=== PATIENT | female | born 2000 | race Caucasian/White ===

== ENCOUNTER 2022-07-05 18:40 | Emergency (ER) | payer BC ==
[~2022-07-05] VITALS: Ht 167.6 cm; Wt 77.1 kg
[2022-07-05] MEDS ORDERED: PROG200C15 PO (19:11)
--- NOTE | 2022-07-05 19:12 | NUR ---
After being triaged, patient was placed back in the waiting room due to no beds available in the ER at this time.
--- NOTE | 2022-07-05 20:55 | NUR ---
Placed patient in room 5a at this time
--- NOTE | 2022-07-05 21:15 | NUR ---
Dr. Carpio at bedside. MSE in progress.
[2022-07-05] MEDS ORDERED: KETOROLAC TROMETHAMINE 60 MG INJ IM ONE ×2 (21:30→22:13)
[2022-07-05 21:52] LABS: *URINE HCG, QUAL NEGATIVE (NEGATIVE)
--- NOTE | 2022-07-05 22:16 | NUR ---
PT refused toradol 60 mg order at this time until test serum quant results come back. Urine test is negative.
[2022-07-06] MEDS ORDERED: CYCLOBENZAPRINE HCL 10 MG TABLET PO ONE
[2022-07-06] MEDS ORDERED: CYCLOBENZAPRINE HCL 10 MG TABLET ONE (00:02)
[2022-07-06] MEDS ORDERED: CYCL10TA9 PO (00:29)
[2022-07-06] MEDS ORDERED: NAPR-1164 PO (00:29)
--- NOTE | 2022-07-06 01:24 | NUR ---
Patient discharged to home in stable condition with boyfriend. A/O x 4. NAD noted. Ambulatory with a steady gait. All belongings with patient. Written and verbal after care instructions given. Patient verbalizes understanding of instructions. Stressed follow up or return to ER for worsening s/s.
[2022-07-06 02:02] VITALS: BP 131/68
== END 2022-07-06 01:24 | disposition home or self-care (01) ==
LOC: ER 18:45
DX: S13.9XXA Sprain of joints and ligaments of unspecified parts of neck, initial encounter (principal); S23.3XXA Sprain of ligaments of thoracic spine, initial encounter; V49.49XA Driver injured in collision with other motor vehicles in traffic accident, initial encounter; Y92.411 Interstate highway as the place of occurrence of the external cause
CPT/HCPCS: 99284; 84703; 84702; 36415; 72080; 96372; J1885; A4663